=== PATIENT | female | born 1945 | race Caucasian/White ===

== ENCOUNTER → 2022-03-14 | Outpatient (CLI) | payer OTHER ==
[~2022-03-14] MED LIST: ASPIRIN CHEWABL81 MG PO; BIOTIN1 MG PO; ELIQUIS2.5 MG PO; IMDUR ER TAB 3030 MG PO; LOPRESSOR50 MG PO; LOVAZA1 GM PO; MOBIC7.5 MG PO; PERCOCET 10-321 EACH PO; PROTONIX40 MG PO; SIMVASTATIN20 MG PO; VITAMIN D-40400 UNIT PO; XARELTO10 MG PO
== END ==
LOC: KOH-I 13:28
DX: M48.061 Spinal stenosis, lumbar region without neurogenic claudication (principal); M47.816 Spondylosis without myelopathy or radiculopathy, lumbar region
CPT/HCPCS: 72148